=== PATIENT | female | born 1980 | race Caucasian/White ===

== ENCOUNTER 2022-03-19 14:08 | Outpatient (CLI) | payer BC, SELFPAY ==
[2022-03-19 14:08] LABS: Cholesterol* 206 mg/dL (90-199); HDL Cholesterol* 52 mg/dL (>=50); LDL Cholesterol Calculated 119 mg/dL (<100); Triglycerides* 173 mg/dL (40-149)
[2022-03-19 15:05] LABS: Glucose* 108 mg/dL (60-115)
== END 2022-03-19 14:09 | disposition home or self-care (01) ==
PROVIDERS: PCP Obstetrics & Gynecology; Visit Provider Obstetrics & Gynecology
DX: Z01.419 Encounter for gynecological examination (general) (routine) without abnormal findings (principal); Z13.6 Encounter for screening for cardiovascular disorders; Z13.1 Encounter for screening for diabetes mellitus
CPT/HCPCS: 80061; 82947

== ENCOUNTER 2022-03-21 09:44 | Outpatient (CLI) | payer BC, SELFPAY ==
[2022-03-21 13:44] LABS: Albumin* 4.4 g/dL (3.3-5.0); Chloride* 100 mmol/L (96-114)
[2022-03-21 13:45] LABS: Sodium* 138 mmol/L (135-149)
[2022-03-21 13:47] LABS: Creatinine* 0.7 mg/dL (0.5-1.5); Estimated Glomerular Filt Rate 112 ml/min
[2022-03-21 13:48] LABS: Alanine Aminotransferase* 24 U/L (4-35); Alkaline Phosphatase* 80 U/L (40-150); Aspartate Amino Transferase* 36 U/L (12-35); Bilirubin Total* 0.4 mg/dL (0.1-1.5); Blood Urea Nitrogen* 12 mg/dL (5-24); Calcium* 8.9 mg/dL (8.4-10.6); Carbon Dioxide* 28 mmol/L (20-32); Glucose* 107 mg/dL (60-115); Lipase* 67 U/L (23-300)
[2022-03-21 13:51] LABS: C Reactive Protein* < 0.5 mg/dL (0.5-1.0)
== END 2022-03-21 09:45 | disposition home or self-care (01) ==
PROVIDERS: PCP Obstetrics & Gynecology; Visit Provider Family Medicine
DX: R10.9 Unspecified abdominal pain (principal)
CPT/HCPCS: 80053; 83690; 86140

== ENCOUNTER 2022-03-30 07:04 | Outpatient (CLI) | payer BC, SELFPAY ==
--- NOTE | 2022-03-30 07:15 | CRLHL7_ITS ---
For Patients: As a result of the Century Cures Act, medical imaging exams and procedure reports are released immediately into your electronic medical record. You may view this report before your referring provider. If you have questions, please contact your health care provider. CLINICAL HISTORY: Abdominal pain COMPARISON: none TECHNIQUE: Real time bello scale imaging and color Doppler analysis was performed of the abdomen. FINDINGS: Sonographic imaging demonstrates normal size and diffusely increased and coarsened echotexture of the liver. The spleen is of normal size. Multiple splenic calcified granulomas are noted. The pancreas appears normal. The proximal abdominal aorta and IVC appear normal. There is no evidence of ascites. The gallbladder is contracted and there are multiple hyperechoic and shadowing stones measuring up to 3 cm. The gallbladder wall measures 3 mm in thickness. The common bile duct measures 5 mm in size within the delon hepatis. The kidneys appear symmetric. The right kidney measures 10.7 cm in length and the left kidney measures 10.2 cm. There is no evidence of a renal calculus or hydronephrosis. IMPRESSION: Multiple gallstones within a contracted gallbladder measuring up to 3 cm. This is consistent with chronic cholelithiasis. Consider chronic cholecystitis if the patient`s bilirubin is elevated. Severe hepatic steatosis. Dictated by John Gusman MD @ 03/30/2022 8:20:09 AM (Electronically Signed)
== END 2022-03-30 07:05 | disposition home or self-care (01) ==
LOC: US 07:06
PROVIDERS: PCP Obstetrics & Gynecology; Visit Provider Family Medicine
DX: R10.9 Unspecified abdominal pain (principal); K80.80 Other cholelithiasis without obstruction; K76.0 Fatty (change of) liver, not elsewhere classified
CPT/HCPCS: 76700

== ENCOUNTER 2022-04-11 15:48 | Outpatient (CLI) | payer BC, SELFPAY | END 2022-04-11 15:49 | disposition home or self-care (01) | LOC: LKVREF 15:49 | PROVIDERS: PCP Obstetrics & Gynecology; Visit Provider Otolaryngology | DX: Z00.00 Encounter for general adult medical examination without abnormal findings (principal); G47.19 Other hypersomnia | CPT/HCPCS: 82728 ==

== ENCOUNTER 2022-05-04 12:56 | Outpatient (CLI) | payer BC, SELFPAY ==
--- NOTE | 2022-05-04 13:00 | CRLHL7_ITS ---
For Patients: As a result of the Century Cures Act, medical imaging exams and procedure reports are released immediately into your electronic medical record. You may view this report before your referring provider. If you have questions, please contact your health care provider. BILATERAL SCREENING MAMMOGRAM WITH COMPUTER-AIDED DETECTION TECHNIQUE: CC and MLO views were obtained. These mammographic images have been obtained using full-field digital technique. These mammographic images were interpreted with the benefit of computer-aided detection. COMPARISON FILM: Baseline. FINDINGS: There are scattered areas of fibroglandular density IMPRESSION: There is no radiographic evidence for malignancy. ASSESSMENT: BI-RADS Category 1: Negative RECOMMENDATION: Routine screening mammogram in 1 year. A lay language report of this examination will be provided to the patient. John Gusman M.D. Diagnostic Radiologist [email or web address] ESHA/Dictated by: John Gusman MD @ 05/04/2022 2:15:00 PM (Electronically Signed)
== END 2022-05-04 12:57 | disposition home or self-care (01) ==
LOC: MAMMO 12:59
PROVIDERS: PCP Family Medicine; Visit Provider Obstetrics & Gynecology
DX: Z12.31 Encounter for screening mammogram for malignant neoplasm of breast (principal)
CPT/HCPCS: 77063; 77067

== ENCOUNTER 2022-05-24 10:58 | Day surgery (SDC) | payer BC, SELFPAY ==
[2022-05-24] VITALS (13 sets, daily range): BP systolic 117–138; BP diastolic 61–83; PULSE 49–67; RESP 11–16; TEMP 36.3–36.7; O2SAT 94–100; BMI 40.1
[2022-05-24] MEDS: SODIUM CHLORIDE 0.9 % (FLUSH) 10 ML SYRINGE IVF (11:16)
[2022-05-24] MEDS: LACTATED RINGERS 1000 ML 1,000 ML 100 ML IV (11:17)
[2022-05-24] MEDS: SCOPOLAMINE 1 MG/3 DAY PATCH 1 PATCH TRANSDERMA (13:11)
[2022-05-24] MEDS: BUPIVACAINE 0.25% 30 ML INJECTION (15:04)
--- NOTE | 2022-05-24 15:13 | PM.GSPRC ---
Operative Note Date of procedure: 05/24/22 Type of Procedure: Laparoscopic cholecystectomy Procedure Description: After discussing the risks and benefits of the procedure, the patient signed informed consent.? The operative site was marked and the patient was brought to the operating room and placed on the operating table in supine position.? Care was taken to pad the patient's pressure points.?? The patient was then intubated by anesthesia.?? The operative site was then prepped and draped in the usual sterile fashion.? A time-out was then performed. Entrance to the abdomen was gained via a 5 mm Visiport in the left upper quadrant. The abdomen was insufflated and briefly surveyed for signs of injury. There was none. A 10 mm supra umbilical port was placed as well as 2 working ports along the right costal margin, all under direct vision. The patient was then placed in reverse Trendelenburg position with the right side up. The gallbladder fundus was grasped and retracted cephalad. The gallbladder was redundant and there was a large stone within. The infundibulum was grasped. A combination of hook cautery and blunt dissection was used to carefully dissect out the cystic duct and artery until they could clearly be seen entering the gallbladder without any intervening structures. The gallbladder was dissected off the cystic plate to achieve the critical view. Once this was achieved the cystic duct and artery were each clipped with 2 clips proximally and 1 clip distally and transected with the scissors. The cystic duct was a tiny bit larger than the clip and for this reason I elected to also place a PDS endoloop on the cystic duct stump to ensure was adequately ligated. The gallbladder was then taken off of the liver bed. There were a few small vessels on the lateral aspect of the gallbladder on the peritoneal edge which were clipped. The gallbladder was removed from the abdomen using an Endo-Catch bag. The gallbladder bed was surveyed for hemostasis which appeared adequate. A small amount of bile which had spilled was suctioned from the abdomen. The umbilical port fascia was closed with 0 Vicryl using Joe-Melchor. The remaining ports were then removed after the abdomen was desufflated. The skin was closed with absorbable subcuticular suture. Sterile dressings were then applied. Instrument sponge and needle counts were correct at the end of the case. The patient was then woken and transferred to the PACU in stable condition. ? The patient tolerated the procedure well. Findings: Large gallstone noted within the gallbladder Anesthesia: GETA Surgeon: Rosalinda Weinstein MD Estimated blood loss (mL): 25 Condition: stable Disposition: PACU
[2022-05-24] MEDS: LACTATED RINGERS 1000 ML 1,000 ML 35 ML IV (15:20)
--- NOTE | 2022-05-24 15:22 | W.ANESCHARGE ---
Anesthesia Charges Start Date/Time Anesthesia Start Date: 05/24/22 Anesthesia Start Time: 13:35 Stop Date/Time Anesthesia Stop Date: 05/24/22 Anesthesia Stop Time: 15:25 Summary Emergency: No
[2022-05-24] MEDS: ONDANSETRON 2 MG/ML inj 4 MG IVP (15:37)
--- NOTE | 2022-05-24 15:38 | W.ANESCHARGE ---
Anesthesia Charges Start Date/Time Anesthesia Start Date: 05/24/22 Anesthesia Start Time: 13:35 Stop Date/Time Anesthesia Stop Date: 05/24/22 Anesthesia Stop Time: 15:25 Summary Emergency: No
[2022-05-24] MEDS: fentaNYL 100 MCG/2 ML inj 50 MCG IVP ×2 (15:42→15:52)
== END 2022-05-24 16:55 | disposition home or self-care (01) ==
LOC: OR 10:59
PROVIDERS: PCP Family Medicine; Visit Provider Surgery
PROC: 0FT44ZZ Resection of Gallbladder, Percutaneous Endoscopic Approach (ICD-10-PCS; CPT 47562; principal; 2022-05-24 12:30)
DX: K80.10 Calculus of gallbladder with chronic cholecystitis without obstruction (principal)
CPT/HCPCS: 47562; 00790; 88304; A9270; J0330; J1100; J1170; J2250; J2405; J2704; J2710; J3010; J3490; J7120

== ENCOUNTER 2022-06-03 19:45 | Outpatient (CLI) | payer BC, SELFPAY ==
--- NOTE | 2022-06-12 08:46 | P.SLS_ITS ---
Sleep Study Details Details Interpreting Provider: Florin Torre MD Date of Sleep Study: 06/03/22 Sleep Study Details: STUDY TYPE:? Home ? BMI:? 41 ORDERING PROVIDER:? Tiesha INDICATION:? Concerns about sleep apnea ? SLEEP SUMMARY:? 513 monitored minutes RESPIRATORY SUMMARY:? AHI is 12.6, supine AHI 14.6, left lateral AHI 1.6. Low oxygen 80 0.9% of study oxygen less than 90%, 0.1% of the study oxygen less than 85%. Snoring% 8 PERIODIC LIMB MOVEMENTS OF SLEEP:? Not recorded CARDIAC:? Range 44-92, mean 58.7 IMPRESSION:? Mild obstructive sleep apnea with supine position dependency. RECOMMENDATION: Treatment options include positional therapy, AutoSet CPAP 4- 17, dental appliance and weight loss.
== END 2022-06-03 19:46 | disposition home or self-care (01) ==
LOC: SLEEP 19:47
PROVIDERS: PCP Family Medicine; Visit Provider Otolaryngology
DX: G47.33 Obstructive sleep apnea (adult) (pediatric) (principal)
CPT/HCPCS: 95806

== ENCOUNTER 2023-08-23 14:44 | Outpatient (CLI) | payer BC, SELFPAY ==
--- NOTE | 2023-08-23 15:00 | CRLHL7_ITS ---
For Patients: As a result of the Century Cures Act, medical imaging exams and procedure reports are released immediately into your electronic medical record. You may view this report before your referring provider. If you have questions, please contact your health care provider. BILATERAL SCREENING MAMMOGRAM WITH COMPUTER-AIDED DETECTION TECHNIQUE: CC and MLO views were obtained. These mammographic images have been obtained using full-field digital technique. These mammographic images were interpreted with the benefit of computer-aided detection. COMPARISON FILM: 05/03/22. FINDINGS: There are scattered areas of fibroglandular density IMPRESSION: There is no radiographic evidence for malignancy. ASSESSMENT: BI-RADS Category 1: Negative RECOMMENDATION: Routine screening mammogram in 1 year. A lay language report of this examination will be provided to the patient. John Gusman M.D. Diagnostic Radiologist [email or web address] Transcribed: 4:56 [email or web address] [email or web address]/Dictated by: John Gusman MD @ 08/28/2023 11:40:00 AM (Electronically Signed)
== END 2023-08-23 14:45 | disposition home or self-care (01) ==
LOC: MAMMO 14:46
PROVIDERS: PCP Family Medicine; Visit Provider Family Medicine
DX: Z12.31 Encounter for screening mammogram for malignant neoplasm of breast (principal)
CPT/HCPCS: 77063; 77067

== ENCOUNTER 2023-12-25 07:31 | Outpatient (CLI) | payer BC, SELFPAY | END 2023-12-25 07:32 | disposition home or self-care (01) | PROVIDERS: PCP Family Medicine; Visit Provider Physician Assistant Medical | DX: L68.0 Hirsutism (principal); Z13.228 Encounter for screening for other metabolic disorders; Z13.220 Encounter for screening for lipoid disorders | CPT/HCPCS: 80053; 80061; 84443 ==

== ENCOUNTER 2025-02-01 10:25 | Outpatient (CLI) | payer BC, SELFPAY | END 2025-02-01 10:26 | disposition home or self-care (01) | PROVIDERS: PCP Physician Assistant Medical; Visit Provider Physician Assistant Medical | DX: Z00.00 Encounter for general adult medical examination without abnormal findings (principal); E66.01 Morbid (severe) obesity due to excess calories; L65.9 Nonscarring hair loss, unspecified; Z68.41 Body mass index [BMI] 40.0-44.9, adult; Z13.6 Encounter for screening for cardiovascular disorders | CPT/HCPCS: 80053; 80061; 84443 ==

== ENCOUNTER 2025-06-25 15:02 | Outpatient (CLI) | payer BC, SELFPAY ==
--- NOTE | 2025-06-25 15:20 | CRLHL7_ITS ---
For Patients: As a result of the Century Cures Act, medical imaging exams and procedure reports are released immediately into your electronic medical record. You may view this report before your referring provider. If you have questions, please contact your health care provider. INDICATION: BILATERAL SCREENING MAMMOGRAM, ASYMPTOMATIC 45 Y/O FEMALE COMPARISON: 08/23/2023, 05/04/2022 TECHNIQUE: Digital mammogram in CC and MLO projections including computer-aided detection (CAD) and tomosynthesis. BREAST COMPOSITION: There are scattered areas of fibroglandular density. FINDINGS: No suspicious findings. ASSESSMENT: BI-RADS 1 Negative RECOMMENDATION: Annual screening mammogram. A lay language report of this examination will be provided to the patient. Dictated by: John Gusman MD @ 06/28/2025 09:26:00 (Electronically Signed)
== END 2025-06-25 15:03 | disposition home or self-care (01) ==
LOC: MAMMO 15:02
PROVIDERS: PCP Physician Assistant Medical; Visit Provider Physician Assistant Medical
DX: Z12.31 Encounter for screening mammogram for malignant neoplasm of breast (principal)
CPT/HCPCS: 77063; 77067